=== PATIENT | female | born 1995 | race Hispanic/Latino ===

== ENCOUNTER 2025-06-30 09:42 | Inpatient (IN) | payer OTHER ==
[2025-06-29 10:58] LABS: Hematocrit 41.9 % (34.9-44.5); Hemoglobin 14.3 g/dL (12.0-15.5); Mean Corpuscular Hemoglobin 28.9 pg (27.0-33.0); Mean Corpuscular Volume 84.8 fL (81.6-98.3); Platelet Count 176 10x3/uL (150-450); Red Blood Cell (RBC) Count 4.94 10x6/uL (3.90-5.03); White Blood Cell (WBC) Count 10.38 10x3/uL (3.5-10.5)
[2025-06-29 11:31] LABS: Syphilis Antibody Index 0.05 S/CO (<1.00 Non-Reactive)
[2025-06-29 11:32] LABS: Hep B Surf Ag Non-Reactive S/CO (NonReactive)
[2025-06-30 10:18] VITALS: BMI 36.8
[2025-06-30] MEDS ORDERED: Carboprost 250 MCG/ML AMP IM PRN (10:24)
[2025-06-30] MEDS ORDERED: hydrALAZINE 20 MG/ML VIAL SLOW IVP PRN (10:24)
[2025-06-30] MEDS ORDERED: Diphenoxylate HCl/Atropine Tablet PO PRN ×2 (10:24)
[2025-06-30] MEDS ORDERED: Tranexamic Acid 1,000 MG/10 ML VIAL IVP PRN (10:24)
[2025-06-30] MEDS ORDERED: Famotidine/PF 20 mg/2ml Vial SLOW IVP PRN (10:24)
[2025-06-30] MEDS ORDERED: Methylergonovine 0.2 MG/ML VIAL IM PRN (10:24)
[2025-06-30] MEDS ORDERED: Bicitra 30 ML UDCUP PO PRN (10:24)
[2025-06-30] MEDS ORDERED: Ondansetron PF 4 MG/2 ML Vial IVP PRN ×3 (10:24→14:32)
[2025-06-30] MEDS ORDERED: Oxytocin 30 units/NS 500 ML 500 ML IV SCH (10:30)
[2025-06-30] MEDS ORDERED: diphenhydrAMINE 50 MG/ML VIAL IVP PRN (14:32)
[2025-06-30] MEDS ORDERED: Ketorolac Tromethamine 30 MG (1 mL) VIAL IVP PRN (14:32)
[2025-06-30] MEDS ORDERED: Meperidine HCl/PF 25 MG (1 mL) VIAL SLOW IVP PRN (14:32)
[2025-06-30] MEDS ORDERED: Ketorolac Tromethamine 30 MG (1 mL) VIAL IVP SCH (14:45)
[2025-06-30] MEDS ORDERED: Communication Order-Pharmacy FS SCH (14:45)
[2025-06-30] MEDS: Hepatitis B Vaccine 10 MCG/0.5 ML SYR ONE (17:42)
[2025-06-30] MEDS: Erythromycin Base 0.5% Oint 1 GM TUBE ONE (17:42)
[2025-06-30] MEDS: Oxytocin 10 UNITS/ML VIAL ONE ×2 (17:42→17:43)
[2025-06-30] MEDS: Tranexamic Acid 1,000 MG/10 ML VIAL ONE (17:43)
[2025-06-30] MEDS: Ondansetron PF 4 MG/2 ML Vial ONE (17:43)
[2025-06-30] MEDS ORDERED: Ibuprofen 800 MG TAB PO SCH (18:00)
[2025-06-30] MEDS: Ketorolac Tromethamine 30 MG (1 mL) VIAL IVP SCH (20:28)
[2025-07-01 06:44] LABS: Hematocrit 36.2 % (34.9-44.5); Hemoglobin 12.2 g/dL (12.0-15.5); Mean Corpuscular Hemoglobin 28.7 pg (27.0-33.0); Mean Corpuscular Volume 85.2 fL (81.6-98.3); Platelet Count 142 10x3/uL (150-450); Red Blood Cell (RBC) Count 4.25 10x6/uL (3.90-5.03); White Blood Cell (WBC) Count 10.48 10x3/uL (3.5-10.5)
[2025-07-01] MEDS: Ketorolac Tromethamine 30 MG (1 mL) VIAL IVP SCH (08:47)
[2025-07-01] MEDS: Acetaminophen 500 MG TAB PO PRN (16:39)
[2025-07-01] MEDS: Ibuprofen 800 MG TAB PO SCH (18:11)
[2025-07-02 08:47] VITALS: BP 116/63; TEMP 97.8
[2025-07-02] MEDS ORDERED: Simethicone Chewable 80 MG TAB PO SCH (09:00)
== END 2025-07-02 11:45 | disposition home or self-care (01) | DRG 785 ==
LOC: CSHLD 09:42 → CSHPP 16:12
PROVIDERS: ADMIT Family Medicine; ATTEND Family Medicine
PROC: 10D00Z1 Extraction of Products of Conception, Low, Open Approach (ICD-10-PCS; principal; 2025-06-30)
PROC: 0UT70ZZ Resection of Bilateral Fallopian Tubes, Open Approach (ICD-10-PCS; 2025-06-30)
PROC: 4A1HXCZ Monitoring of Products of Conception, Cardiac Rate, External Approach (ICD-10-PCS; 2025-06-30)
DX: O34.211 Maternal care for low transverse scar from previous cesarean delivery (principal); O36.8330 Maternal care for abnormalities of the fetal heart rate or rhythm, third trimester, not applicable or unspecified; Z3A.39 39 weeks gestation of pregnancy; Z79.899 Other long term (current) drug therapy; Z79.82 Long term (current) use of aspirin; Z88.0 Allergy status to penicillin; Z67.21 Type B blood, Rh negative; Z37.0 Single live birth
CPT/HCPCS: 36415; 36416; 51702; 85027; 85461; 86780; 86850; 86900; 86901; 87340; 88302; 90384; 96372; J1885; J2274; J2590